=== PATIENT | female | born 1980 | race Caucasian/White ===

== ENCOUNTER 2016-08-16 20:32 | Emergency (ER) | payer BC ==
[2016-08-16 20:51] VITALS: BP 112/78
--- NOTE | 2016-08-16 21:21 | UC ---
Abdominal Pain Female HPI - HPI Summary HPI Summary: The patient comes in today for: 1. Lower abdominal pain: Onset: 2 hours Palliative/provocative: Standing makes it better. Worse with sitting. Quality: Sharp and burning. Region: Suprapubic, "I can't even button my pants.' Severity: 10 Time: Constant. Associated symptoms: Dysparuenia: Noted last night. Fevers: None. Pelvic disease: LEEP procedure 2 years ago. Dysuria: None. Hematuria: None. LMP: Ended 5 days ago. Vaginal discharge: White with streaks of blood. Diarrhea: None. Vomiting: None A0 female. * - History of Current Complaint Chief Complaint: UCAbdominalPain Stated Complaint: ABDOMINAL PAIN Time Seen by Provider: 08/16/16 20:48 Hx Last Menstrual Period: 08/10/16 Allergies/Adverse Reactions: Allergies Allergy/AdvReac Type Severity Reaction Status Date / Time No Known Allergies Allergy Verified 08/16/16 20:50 Home Medications: Home Medications Multiple Vitamins W/ Minerals [Multivitamin Women] 1 tab PO 08/16/16 [History] NK [No Home Medications Reported] 08/16/16 [History Confirmed 08/16/16] PMH/Surg Hx/FS Hx/Imm Hx Previously Healthy: Yes Endocrine History Of: Denies: Diabetes, Thyroid Disease, Hyperthyroidism, Hypothyroidism, Dyslipidemia Cardiovascular History Of: Denies: Cardiac Disorders, Hypertension, Pacemaker/ICD, Myocardial Infarction , Congestive Heart Failure, Atrial Fibrillation, Deep Vein Thrombosis, Bleeding Disorders Respiratory History Of: Denies: COPD, Asthma, Bronchitis, Pneumonia, Pulmonary Embolism GI/ History Of: Denies: Gastroesophageal Reflux, Ulcer, Gastrointestinal Bleed, Gall Bladder Disease, Kidney Stones, Diverticulitis, Renal Disease, Urosepsis Neurological History Of: Denies: TIA, CVA, Dementia, Seizures, Migraine Psychological History Of: Denies: Anxiety, Depression, Bipolar Disorder, Schizophrenia, Post Traumatic Stress Disorder Cancer History Of: Reports: Cervical Cancer - LEEP procedure. Denies: Lung Cancer, Colorectal Cancer, Breast Cancer, Prostate Cancer Other History Of: Negative For: HIV, Hepatitis B, Hepatitis C, Anticoagulant Therapy - Surgical History Surgical History: Yes Surgery Procedure, Year, and Place: leep procedure - Family History Known Family History: Positive: Hypertension Negative: Cardiac Disease - Social History Occupation: Employed Full-time Alcohol Use: Occasionally Substance Use Type: None Smoking Status (MU): Never Smoked Tobacco Review of Systems Constitutional: Negative Skin: Negative Eyes: Negative ENT: Negative Respiratory: Negative Cardiovascular: Negative Gastrointestinal: Abdominal Pain Genitourinary: Negative All Other Systems Reviewed And Are Negative: Yes Physical Exam Triage Information Reviewed: Yes Appearance: Well-Nourished, Ill-Appearing, Pain Distress - She is crying at times, and will only stand due to the pain. Vital Signs: Initial Vital Signs Temp 98.2 F 08/16/16 20:46 Pulse 90 08/16/16 20:46 Resp 18 08/16/16 20:46 BP 112/78 08/16/16 20:46 Pulse Ox 99 08/16/16 20:46 Vital Signs Reviewed: Yes Eyes: Positive: Conjunctiva Clear. Negative: Discharge ENT: Positive: Hearing grossly normal. Negative: Pharyngeal erythema, Nasal congestion, Nasal drainage, TM bulging, TM dull, TM red, Tonsillar swelling, Tonsillar exudate Dental: Negative: Gross Decay/Caries @, Dental Fracture @ Neck: Positive: Supple, Nontender, No Lymphadenopathy. Negative: Nuchal Rigidity Respiratory: Positive: Chest non-tender, Lungs clear, No respiratory distress, No accessory muscle use. Negative: Crackles, Wheezing Cardiovascular: Positive: RRR, No Murmur Abdomen Description: Positive: No Organomegaly, Soft, Peritoneal Signs. Negative: Nontender - She has most tenderness in the suprapubic area. Moderate palpation led to increased pain--no rebound, but there is percussion tenderness. , CVA Tenderness (R), CVA Tenderness (L), Distended, Guarding Bowel Sounds: Positive: Present Musculoskeletal: Positive: Strength Intact, ROM Intact, No Edema Neurological: Positive: Alert, Muscle Tone Normal Psychological: Positive: Age Appropriate Behavior, Consolable Skin: Negative: rashes, breakdown Abd Pain Female Course/Dx - Course Course Of Treatment: Patient was told that we are not able to due any of the blood and imaging such as ultrasound on her here. She agreed to go to the ER by private car. - Differential Dx/Diagnosis Differential Diagnosis: Ovarian Cyst Provider Diagnoses: suprapubic abdominal pain. Discharge - Discharge Plan Condition: Stable Disposition: HOME Forms: *Work Release Referrals: No Primary Care Phys,NOPCP [Primary Care Provider] - [facility] [place] [facility] REFERR[facility] [Outside] Additional Instructions: Please go directly to the [facility], [place] emergency room.
== END 2016-08-16 21:45 | disposition left against medical advice (07) ==
LOC: UCEAST 20:32
DX: R10.30 Lower abdominal pain, unspecified (principal); N89.8 Other specified noninflammatory disorders of vagina
CPT/HCPCS: 99202; G0463

== ENCOUNTER 2016-08-16 22:08 | Emergency (ER) | payer BC ==
[2016-08-16] MEDS ORDERED: NS 0.9% 1000 ML* 1,000 ML IV ONE (22:58)
[2016-08-16] MEDS ORDERED: Morphine INJ* 4 MG/ML 1 ML CARPUJECT IV ONE (23:03)
[2016-08-16] MEDS ORDERED: Ondansetron INJ* 2 MG/ML VIAL IV ONE (23:03)
[2016-08-16] MEDS ORDERED: Ketorolac INJ* 30 MG/ML 1 ML VIAL IV PUSH ONE (23:03)
--- NOTE | 2016-08-16 23:07 | ED ---
Abdominal Pain/Female - HPI Summary HPI Summary: 35F presents with LLQ pain that became suprapubic pain today. She states feels like ruptured ovarian cyst that had in past. LMP was 6 days ago. She said she stood up and felt a pop and then felt fluid pool in her lower abdomen. She states that she is currently nauseous but denies any vomiting, diarrhea, or constipation. She denies any dysuria, frequency, hematuria. She admits to vaginal discharge but denies any history of STDs. She had cervical cancer that was treated with LEEP procedure. Was seen at urgent care and transferred here for further work up. - History of Current Complaint Chief Complaint: EDUrogenitalProblems Stated Complaint: ABD PAIN /CONV CARE Time Seen by Provider: 08/16/16 22:57 Hx Last Menstrual Period: 08/10/16 Pain Intensity: 9 Allergies/Adverse Reactions: Allergies Allergy/AdvReac Type Severity Reaction Status Date / Time No Known Allergies Allergy Verified 08/16/16 20:50 PMH/Surg Hx/FS Hx/Imm Hx Endocrine/Hematology History: Denies: Hx Anticoagulant Therapy, Hx Diabetes, Hx Thyroid Disease Cardiovascular History: Denies: Hx Congestive Heart Failure, Hx Deep Vein Thrombosis, Hx Hypertension , Hx Myocardial Infarction, Hx Pacemaker/ICD Respiratory History: Denies: Hx Asthma, Hx Chronic Obstructive Pulmonary Disease (COPD), Hx Lung Cancer, Hx Pneumonia, Hx Pulmonary Embolism GI History: Denies: Hx Gall Bladder Disease, Hx Gastrointestinal Bleed, Hx Ulcer, Hx Urosepsis History: Denies: Hx Kidney Stones, Hx Renal Disease Neurological History: Denies: Hx Dementia, Hx Migraine, Hx Seizures, Hx Transient Ischemic Attacks (TIA) Psychiatric History: Denies: Hx Anxiety, Hx Depression, Hx Schizophrenia, Hx Bipolar Disorder - Surgical History Surgery Procedure, Year, and Place: leep procedure Infectious Disease History: No Infectious Disease History: Denies: Hx Hepatitis, Hx Human Immunodeficiency Virus (HIV), Traveled Outside the US in Last 30 Days - Family History Known Family History: Positive: Hypertension Negative: Cardiac Disease - Social History Alcohol Use: Occasionally Substance Use Type: Reports: None Smoking Status (MU): Never Smoked Tobacco Review of Systems Negative: Fever Negative: Chest Pain Negative: Shortness Of Breath Positive: Abdominal Pain - LLQ and suprapubic, Nausea. Negative: Vomiting, Diarrhea Negative: dysuria All Other Systems Reviewed And Are Negative: Yes Physical Exam Triage Information Reviewed: Yes Vital Signs On Initial Exam: Initial Vitals Temp Pulse Resp BP Pulse Ox 98.1 F 106 18 115/70 99 08/16/16 22:12 08/16/16 22:12 08/16/16 22:12 08/16/16 22:12 08/16/16 22:12 Vital Signs Reviewed: Yes Appearance: Positive: Pain Distress Skin: Positive: Warm, Dry Head/Face: Positive: Normal Head/Face Inspection Eyes: Positive: Normal, Conjunctiva Clear ENT: Positive: Normal ENT inspection, Pharynx normal, TMs normal Respiratory/Lung Sounds: Positive: Clear to Auscultation, Breath Sounds Present Cardiovascular: Positive: Normal, RRR Abdomen Description: Positive: Soft, Other: - moderate tenderness of suprapubic region, neg rovsing, obturator. Negative: Distended, Guarding Bowel Sounds: Positive: Present Pelvic Exam: Positive: external exam normal, speculum exam normal, discharge - white discharge, other - neg chandelier sign, mild tenderness on exam. Negative : blood Diagnostics - Vital Signs Vital Signs Temp Pulse Resp BP Pulse Ox 08/16/16 22:12 98.1 F 106 18 115/70 99 - Laboratory Result Diagrams: 08/16/16 23:20 08/16/16 23:20 Lab Statement: Any lab studies that have been ordered have been reviewed, and results considered in the medical decision making process. - Ultrasound No standard instances Ultrasound Interpretation: Positive (See Comments) - left sided fibroid, normal ovaries, no ovarian torison, no free fluid Ultrasound Interpretation Completed By: Radiologist Abdominal Pain Fem Course/Dx - Course Course Of Treatment: 35F presents with LLQ that became suprapubic pain today. states that pain is worst every had. states feels similiar to when had ruptured ovarian cyst. on exam tender to suprapubic pain. labs: normal. u/a shows fibroid and no free fluid or cyst. pelvic exam showed white vaginal discharge was mild tenderness but no chandelier sign. patient is more tender when pushing on abdomen than when do internal exam so do not suspect PID. do not suspect appendicits due to no RLQ and normal labs. discussed results with patient that do not see cause for pain. will give pain medication and have follow up with primary. patient understands and agrees with plan - Diagnoses Differential Diagnosis: Positive: Appendicitis, Ovarian Cyst, Pelvic Inflammatory Disease, Urinary Tract Infection Provider Diagnoses: Abdominal pain Discharge - Discharge Plan Condition: Good Disposition: HOME Prescriptions: Ondansetron ODT TAB* [Zofran 4 MG Odt TAB*] 4 mg PO Q6H PRN #10 tab.odt PRN Reason: Nausea oxyCODONE/Acetamin 5/325 MG* [Percocet 5/325 TAB*] 1 tab PO Q6H PRN #6 tab MDD 4 PRN Reason: Pain Patient Education Materials: Abdominal Pain (ED) Referrals: No Primary Care Phys,NOPCP [Primary Care Provider] - Additional Instructions: Drink small amounts of fluid and eat as tolerated Take ibuprofen or Tylenol for pain as needed every 6 hours, use narcotic for break through pain every 6 hours Take zofran every 6 hours as needed for nausea Follow up with primary within 5 days Return to ED if develop any new or worsening symptoms
[2016-08-16 23:40] LABS: Hematocrit 43 % (35-47); Hemoglobin 14.2 g/dl (12.0-16.0); Mean Corpuscular HGB Conc 33 g/dl (31-36); Mean Corpuscular Hemoglobin 30 pg (27-31); Mean Corpuscular Volume 90 fL (80-97); Mean Platelet Volume 9 um3 (7.4-10.4); Red Blood Count 4.71 10^6/ul (4.0-5.4); Red Cell Distribution Width 13 % (10.5-15); White Blood Count 9.4 10^3/ul (3.5-10.8)
[2016-08-17 00:04] LABS: Albumin 4.5 g/dL (3.2-5.2); BUN/Creatinine Ratio 17.6 (8-20); Calcium 9.6 mg/dL (8.6-10.3); EGFR African American 127.4 (>60); Globulin 2.8 g/dL (2-4); Potassium 3.7 mmol/L (3.5-5.0); Total Bilirubin 0.3 mg/dL (0.2-1.0); Total Protein 7.3 g/dL (6.4-8.9)
[2016-08-17] MEDS ORDERED: Morphine INJ* 4 MG/ML 1 ML CARPUJECT IV ONE (00:16)
[2016-08-17 00:40] LABS: Urine Bilirubin Negative (Negative); Urine Glucose Negative (Negative); Urine Nitrite Negative (Negative)
[2016-08-17] MEDS ORDERED: oxyCODONE/Acetamin 5/325 MG* TAB PO ONE (01:00)
[2016-08-17 01:30] VITALS: BP 114/70
--- NOTE | 2016-08-17 08:00 | RAD ---
Indication: Pelvic pain. Left lower quadrant pain. Real-time sonography of the pelvis was performed. The study was performed with endovaginal technique. The uterus measures 6.9 x 3.0 x 4.5 cm. Uterine body fibroid to the left measures 15 x 12 x 15 mm. Endometrial echo measures 12 mm. Right ovary measures 26 x 16 x 24 mm. Left ovary measures 36 x 22 x 26 mm. No adnexal masses are noted. Doppler interrogation demonstrates flow in both ovaries. IMPRESSION: Left-sided uterine body fibroid. Normal size and appearance of ovaries.
== END 2016-08-17 01:28 | disposition home or self-care (01) ==
LOC: ED 22:08
DX: R10.32 Left lower quadrant pain (principal); R11.0 Nausea
CPT/HCPCS: 36415; 76830; 80053; 81003; 83690; 85025; 86141; 87480; 87491; 87510; 87591; 87661; 96374; 96375; 99283; A9270-GY; J1885; J2270; J2405

== ENCOUNTER 2017-02-04 12:04 | Emergency (ER) | payer BC, OTHER ==
--- NOTE | 2017-02-04 13:16 | RAD ---
HISTORY: Right ankle and foot pain injury, COMPARISONS: None VIEWS: 6, Frontal, lateral, and oblique views of the right ankle and of the right foot FINDINGS: BONE DENSITY: Normal. BONES: There is no displaced fracture. JOINTS: There is no arthropathy. ALIGNMENT: There is no dislocation. SOFT TISSUES: Unremarkable. OTHER FINDINGS: None. IMPRESSION: NO ACUTE OSSEOUS INJURY TO THE RIGHT ANKLE OR TO THE RIGHT FOOT. IF SYMPTOMS PERSIST, RECOMMEND REPEAT IMAGING.
[2017-02-04] MEDS ORDERED: Ketorolac INJ* 60 MG/2 ML VIAL IM ONE (14:42)
--- NOTE | 2017-02-04 14:55 | ED ---
Lower Extremity - HPI Summary HPI Summary: 36 female presents with complaints of lower right ankle/foot pain that has been ongoing for the past week. Patient states ~ 2 weeks ago she injured and twisted it, swelling, bruising and pain improved however on Monday/ days ago, patient had a keg fall onto her ankle/foot while at work and the pain has not gone away since. It has been worsening.States she has been icing, elevating and taking ibuprofen without relief. She states she was up last night from the throbbing pain. She does not know what she did with it. [facility] who gave her a foot brace and sent her home. Negative x-rays at that time as well. States pain is in back of heel and both medial/lateral ankle/ foot. Admits to some bruising. Denies PMHx. Admits to some pins needles when elevating in her toes. Denies any other injuries, calf pain, knee pain, etc. Last dose ibuprofen was this am around 9:30. No erythema, fever/chills. no tobacco use. no prolonged bed rest, no OCP. - History of Current Complaint Chief Complaint: EDExtremityLower Stated Complaint: RT ANKLE/FOOT INJURY Time Seen by Provider: 02/04/17 12:30 Hx Obtained From: Patient Hx Last Menstrual Period: 08/10/16 Mechanism Of Injury: Direct Blow - keg fell on, Twisted Onset of Pain: Immediate, Post Accident Onset/Duration: Worse Since Severity Initially: Mild Severity Currently: Moderate Pain Intensity: 6 Pain Scale Used: 0-10 Numeric Timing: Constant Location: Is Discrete @ - right ankle/foot Character Of Pain: Sharp, Aching Associated Signs And Symptoms: Positive: Swelling, Bruising Aggravating Factor(s): Standing, Ambulation, Weight Bearing Alleviating Factor(s): Rest, Elevation, Ice, OTC Meds Able to Bear Weight: No - due to pain - Allergies/Home Medications Allergies/Adverse Reactions: Allergies Allergy/AdvReac Type Severity Reaction Status Date / Time No Known Allergies Allergy Verified 02/04/17 12:20 PMH/Surg Hx/FS Hx/Imm Hx Endocrine/Hematology History: Denies: Hx Anticoagulant Therapy, Hx Diabetes, Hx Thyroid Disease Cardiovascular History: Denies: Hx Congestive Heart Failure, Hx Deep Vein Thrombosis, Hx Hypertension , Hx Myocardial Infarction, Hx Pacemaker/ICD Respiratory History: Denies: Hx Asthma, Hx Chronic Obstructive Pulmonary Disease (COPD), Hx Lung Cancer, Hx Pneumonia, Hx Pulmonary Embolism GI History: Denies: Hx Gall Bladder Disease, Hx Gastrointestinal Bleed, Hx Ulcer, Hx Urosepsis History: Denies: Hx Kidney Stones, Hx Renal Disease Neurological History: Denies: Hx Dementia, Hx Migraine, Hx Seizures, Hx Transient Ischemic Attacks (TIA) Psychiatric History: Denies: Hx Anxiety, Hx Depression, Hx Schizophrenia, Hx Bipolar Disorder - Surgical History Surgery Procedure, Year, and Place: leep procedure - Immunization History Immunizations Up to Date: Yes Infectious Disease History: No Infectious Disease History: Denies: Hx Hepatitis, Hx Human Immunodeficiency Virus (HIV), Traveled Outside the US in Last 30 Days - Family History Known Family History: Positive: Hypertension Negative: Cardiac Disease - Social History Alcohol Use: Occasionally Substance Use Type: Reports: None Smoking Status (MU): Never Smoked Tobacco Review of Systems Constitutional: Negative Cardiovascular: Negative Respiratory: Negative Positive: Arthralgia, Myalgia, Decreased ROM, Edema - right ankle/foot Positive: Bruising Positive: Paresthesia All Other Systems Reviewed And Are Negative: Yes Physical Exam Triage Information Reviewed: Yes Vital Signs On Initial Exam: Initial Vitals Temp Pulse Resp BP Pulse Ox 97.3 F 59 16 152/72 97 02/04/17 12:10 02/04/17 12:10 02/04/17 12:10 02/04/17 12:10 02/04/17 12:10 Bp improved 116/73 Vital Signs Reviewed: Yes Appearance: Positive: Well-Appearing, Well-Nourished, Pain Distress - moderate when palpating or moving Skin: Positive: Warm, Skin Color Reflects Adequate Perfusion, Dry, Other - some ecchymosis and edema noted at left medial ankle/foot. Negative: Cold, Numb, Cyanosis @, Pale Head/Face: Positive: Normal Head/Face Inspection Eyes: Positive: Conjunctiva Clear ENT: Positive: Hearing grossly normal Neck: Positive: Supple, Nontender Respiratory/Lung Sounds: Positive: Clear to Auscultation, Breath Sounds Present. Negative: Rales, Rhonchi, Wheezes Cardiovascular: Positive: Normal, RRR, Pulses are Symmetrical in both Upper and Lower Extremities - 2+ pedal b/l good cap refill. Negative: Murmur, Rub Abdomen Description: Positive: Nontender Bowel Sounds: Positive: Present Musculoskeletal: Positive: Limited @ - right ankle due to pain, has some ROM, Pain @ - medial malleolous, foot, lateral and heel on palpation. some ecchymosis and edema noted, Edema Right - mild on right, Other - no crepitus, step off or obvious deformity. negative resendiz test. recommend MRI imaging to rule out achilles indefinetly. Negative: Interruption @, Abnormal @, Adina Sign Left, Adina Sign Right Neurological: Positive: Normal, Sensory/Motor Intact - sensation intact, Alert, Oriented to Person Place, Time, Reflexes Intact, NV Bundle Intact Distally, Unable to Assess Gait - on crutches Psychiatric: Positive: Affect/Mood Appropriate - [place] Coma Scale Coma Scale Total: 15 Diagnostics - Vital Signs Vital Signs Temp Pulse Resp BP Pulse Ox 02/04/17 12:24 98.3 F 69 16 116/73 100 02/04/17 12:10 97.3 F 59 16 152/72 97 - Laboratory Lab Statement: Any lab studies that have been ordered have been reviewed, and results considered in the medical decision making process. - Radiology right ankle/foot Xray Interpretation: No Acute Changes - NO ACUTE OSSEOUS INJURY TO THE RIGHT ANKLE OR TO THE RIGHT FOOT. IF SYMPTOMS PERSIST, RECOMMEND REPEAT IMAGING. Radiology Interpretation Completed By: Radiologist Re-Evaluation - Re-Evaluation First Eval Re-Evaluation Time: 15:30 Change: Improved - had relief after toradol Lower Extremity Course/Dx - Course Course Of Treatment: given toradol and ice while in ED. had some relief. x-rays obtained and negative. appears to be suffering from a sprain or possible tear in ligament along with contusion. follow up with ortho for further evaulation and imaging since pain has worsened and is not getting better. no concern for DVT at this time. no emergent etiology. aware of worsening signs and symptoms. continue NSAID, RICE and pain managment. Encouraged to stay off of foot due to pain not getting better however still walking on ankle/foot. Given CAM boot, crutches. Follow up PCP. - Diagnoses Differential Diagnosis/HQI/PQRI: Positive: Arthritis, Contusion, Fracture ( Closed), Sprain, Strain Provider Diagnoses: Sprain of ankle, right, Right foot sprain, Contusion Discharge - Discharge Plan Condition: Stable Disposition: HOME Patient Education Materials: Ankle Sprain (ED), Contusion in Adults (ED) Referrals: Aparna Yates MD [Medical Doctor] - [facility] [place] [facility]ERR[facility] [Outside] Additional Instructions: Continue icing, resting and elevating. Take ibuprofen and pain medication to help with pain and inflammation as directed. take with food. do not drive while taking narcotics. make an appointment with ortho. call number to try and find PCP. use boot and crutches and try to refrain from walking on it and using it.
[2017-02-04 16:15] VITALS: BP 112/70
== END 2017-02-04 16:14 | disposition home or self-care (01) ==
LOC: ED 12:04
DX: S93.401A Sprain of unspecified ligament of right ankle, initial encounter (principal); M25.571 Pain in right ankle and joints of right foot; S90.31XA Contusion of right foot, initial encounter; X50.9XXA Other and unspecified overexertion or strenuous movements or postures, initial encounter; Y93.89 Activity, other specified; Y92.89 Other specified places as the place of occurrence of the external cause
CPT/HCPCS: 96372; 99282; J1885

== ENCOUNTER → 2017-04-29 05:19 | Emergency (ER) | payer OTHER ==
[~2017-04-29 05:19] MED LIST: Acetaminophen TAB* 325 MG ONE; Acetaminophen TAB* 325 MG PO ONE
[2017-04-29 06:47] LABS: Hematocrit 36 % (35-47); Hemoglobin 12.7 g/dl (12.0-16.0); Mean Corpuscular HGB Conc 35 g/dl (31-36); Mean Corpuscular Hemoglobin 31 pg (27-31); Mean Corpuscular Volume 88 fL (80-97); Mean Platelet Volume 9 um3 (7.4-10.4); Red Blood Count 4.11 10^6/ul (4.0-5.4); Red Cell Distribution Width 13 % (10.5-15); White Blood Count 11.3 10^3/ul (3.5-10.8)
[2017-04-29 07:04] LABS: Albumin 3.5 g/dL (3.2-5.2); BUN/Creatinine Ratio 14.5 (8-20); Calcium 8.8 mg/dL (8.6-10.3); EGFR African American 161.8 (>60); EGFR Non-African American 125.8 (>60); Globulin 2.6 g/dL (2-4); Potassium 3.3 mmol/L (3.5-5.0); Total Bilirubin 0.2 mg/dL (0.2-1.0); Total Protein 6.1 g/dL (6.4-8.9)
--- NOTE | 2017-04-29 08:23 | ED ---
Don Delatorre Alfonso, scribed for Romaine Rosales MD on 04/29/17 at 0658 . Abdominal Pain/Female - HPI Summary HPI Summary: This patient is a 36 year old F presenting to [facility] accompanied by male with a chief complaint of lower abdominal pain gradually worsening since 1999 yesterday. She reports it feels like I am having contractions in my uterus every 5 minutes lasting a few minutes during 15 weeks of . The patient rates the sharp and throbbing pain 8/10 in severity. Symptoms aggravated by lifting chairs. Symptoms alleviated by nothing. Patient denies vaginal discharge and vaginal bleeding. A1. - History of Current Complaint Chief Complaint: EDAbdPain Stated Complaint: 15 WEEKS /POSS CONTRACTIONS Time Seen by Provider: 04/29/17 06:09 Hx Obtained From: Patient ?: Yes Onset/Duration: Gradual Onset, Lasting Hours, Still Present, Worse Since Timing: Constant Severity Currently: Severe Pain Intensity: 8 Pain Scale Used: 0-10 Numeric Location: Other - Lower Character: Other: - Sharp and throbbing Aggravating Factor(s): Other: - lifting chairs Alleviating Factor(s): Nothing Associated Signs and Symptoms: Positive: Other: - Patient denies vaginal discharge and vaginal bleeding Allergies/Adverse Reactions: Allergies Allergy/AdvReac Type Severity Reaction Status Date / Time No Known Allergies Allergy Verified 04/29/17 05:26 PMH/Surg Hx/FS Hx/Imm Hx Endocrine/Hematology History: Denies: Hx Anticoagulant Therapy, Hx Diabetes, Hx Thyroid Disease Cardiovascular History: Denies: Hx Congestive Heart Failure, Hx Deep Vein Thrombosis, Hx Hypertension , Hx Myocardial Infarction, Hx Pacemaker/ICD Respiratory History: Denies: Hx Asthma, Hx Chronic Obstructive Pulmonary Disease (COPD), Hx Lung Cancer, Hx Pneumonia, Hx Pulmonary Embolism GI History: Denies: Hx Gall Bladder Disease, Hx Gastrointestinal Bleed, Hx Ulcer, Hx Urosepsis History: Denies: Hx Kidney Stones, Hx Renal Disease Opthamlomology History: Denies: Hx Legally Blind EENT History: Denies: Hx Deafness Neurological History: Denies: Hx Dementia, Hx Migraine, Hx Seizures, Hx Transient Ischemic Attacks (TIA) Psychiatric History: Denies: Hx Anxiety, Hx Depression, Hx Schizophrenia, Hx Bipolar Disorder - Surgical History Surgery Procedure, Year, and Place: leep procedure - Immunization History Immunizations Up to Date: Yes Infectious Disease History: No Infectious Disease History: Denies: Hx Hepatitis, Hx Human Immunodeficiency Virus (HIV), Traveled Outside the US in Last 30 Days - Family History Known Family History: Positive: Hypertension Negative: Cardiac Disease - Social History Alcohol Use: None Hx Substance Use: No Substance Use Type: Reports: None Hx Tobacco Use: Yes Smoking Status (MU): Former Smoker Review of Systems Positive: Abdominal Pain Positive: other - Negative vaginal bleeding and discharge All Other Systems Reviewed And Are Negative: Yes Physical Exam - Summary Physical Exam Summary: Appearance: Anxious appearing Sin: Warm Eyes: Normal ENT: Normal Neck: Supple, nontender Respiratory: Clear to auscultation Cardiovascular: Normal Abdomen: Soft, nontender, no armen or guarding Bowel: Present Musculoskeletal: Normal, Strength/ROM Intact Neurological: Normal, A&Ox3 Psychiatric: Normal Triage Information Reviewed: Yes Vital Signs On Initial Exam: Initial Vitals Temp Pulse Resp BP Pulse Ox 98.2 F 84 16 103/67 97 04/29/17 05:21 04/29/17 05:21 04/29/17 05:21 04/29/17 05:21 04/29/17 05:21 Vital Signs Reviewed: Yes - [place] Coma Scale Coma Scale Total: 15 Diagnostics - Vital Signs Vital Signs Temp Pulse Resp BP Pulse Ox 04/29/17 06:30 71 93/59 98 04/29/17 06:00 99/62 04/29/17 05:59 66 97 04/29/17 05:54 80 98 04/29/17 05:52 95/65 04/29/17 05:21 98.2 F 84 16 103/67 97 - Laboratory Lab Results: Lab Results 04/29/17 04/29/17 Range/Units 06:25 06:25 WBC 11.3 H (3.5-10.8) 10^3/ul RBC 4.11 (4.0-5.4) 10^6/ul Hgb 12.7 (12.0-16.0) g/dl Hct 36 (35-47) % MCV 88 (80-97) fL MCH 31 (27-31) pg MCHC 35 (31-36) g/dl RDW 13 (10.5-15) % Plt Count 268 (150-450) 10^3/ul MPV 9 (7.4-10.4) um3 Neut % (Auto) 68.1 (38-83) % Lymph % (Auto) 20.9 L (25-47) % White % (Auto) 7.9 (1-9) % Eos % (Auto) 2.7 (0-6) % Baso % (Auto) 0.4 (0-2) % Absolute Neuts (auto) 7.7 (1.5-7.7) 10^3/ul Absolute Lymphs (auto) 2.4 (1.0-4.8) 10^3/ul Absolute Monos (auto) 0.9 H (0-0.8) 10^3/ul Absolute Eos (auto) 0.3 (0-0.6) 10^3/ul Absolute Basos (auto) 0 (0-0.2) 10^3/ul Absolute Nucleated RBC 0.01 10^3/ul Nucleated RBC % 0.1 Blood Type O Positive Antibody Screen Pending Result Diagrams: 04/29/17 06:25 04/29/17 06:25 Lab Statement: Any lab studies that have been ordered have been reviewed, and results considered in the medical decision making process. - Additional Comments Diagnostic Additional Comments: US Pending official interpretation from radiologist. See [employer]. Abdominal Pain Fem Course/Dx - Course Course Of Treatment: labs drawn, pendig ultrasound, pt care signed out ot Dr. Castanon - Diagnoses Provider Diagnoses: Abdominal pain during Discharge - Discharge Plan Condition: Stable Disposition: OTHER Discharge Disposition Comment: signed out to AM attending Dr. Castanon Referrals: No Primary Care Phys,NOPCP [Primary Care Provider] - The documentation as recorded by the Don stephens Alfonso accurately reflects the service I personally performed and the decisions made by me, Romaine Rosales MD.
[2017-04-29 08:54] LABS: Urine Bacteria Absent (Absent); Urine Bilirubin Negative (Negative); Urine Glucose Negative (Negative); Urine Nitrite Negative (Negative)
--- NOTE | 2017-04-29 09:01 | RAD ---
INDICATION: Abdominal pain in a female. Comparison: None Multiple transabdominal real time images of the gravid uterus were obtained. There is a fundal height uterine fibroid measuring 5.6 x 4.0 x 3.9 cm. This exam demonstrates a single intrauterine in the breech presentation. heart and limb motion were noted. The heart rate was 160 beats per minute. The placenta was located anterior. The amniotic fluid volume appeared to be within normal limits with an amniotic fluid index 11.9 cm. Biparietal diameter (cm) 3.26 which corresponds to a gestational age of 16 weeks and 2 days. Head circumference (cm) 12.01 which corresponds to a gestational age of 16 week. abdominal circumference(cm) 9.83 which corresponds to a gestational age of 16 weeks. femur length (cm) 1.74 which corresponds to a gestational age of 15 weeks and 2 days. The composite estimated gestational age was 16 weeks and 0 days. The estimated weight at this time is 129 grams +/- 19 grams. IMPRESSION: 1. There is a fundal height uterine fibroid measuring 5.6 cm in greatest dimension. 2. Otherwise sonographic findings of the gravid uterus are consistent with a gestational age of 16 weeks and 0 days.
--- NOTE | 2017-04-29 11:21 | RAD ---
INDICATION: Left flank pain and hematuria COMPARISON: None TECHNIQUE: Real-time ultrasound examination of the left kidney including grayscale and Doppler color flow analysis. FINDINGS: The left kidney is normal in size and echogenicity measuring 13.2 x 4.6 x 5.3 cm. There are no hypervascular renal masses. There are no renal calculi or hydronephrosis identified. IMPRESSION: Normal ultrasound of the left kidney.
[2017-04-29 11:52] VITALS: BP 89/59
--- NOTE | 2017-04-29 18:00 | ED ---
Angely Delatorre Edward, scribed for Kalyan Castanon MD on 04/29/17 at 0908 . Progress - Progress Note Progress Note: Pt signed out by Dr. Rosales at shift change. - Results/Orders Results/Orders: US - 1. There is a fundal height uterine fibroid measuring 5.6 cm in greatest dimension. 2. Otherwise sonographic findings of the gravid uterus are consistent with a gestational age of 16 weeks and 0 days. RENAL US - NORMAL US OF L KIDNEY Re-Evaluation - Re-Evaluation 1 Re-Evaluation Time: 10:48 Change: Unchanged - Pain at 4/10 Course/Dx - Course Course Of Treatment: Discussed the case with Dr. Stewart, who indicates the fibroid should not affect . He recommends the pt f/u with mid-wives. Speculum exam not indicated. No signs of UTI or dehydration. On re-eval and my first exam, the pt reports pain in the lower abd radiating to the l flank and back. Pt states no history of hematuria previously. Therefore, we will take a Renal US. There was no tenderness on exam, the pain is 4/10. There was no RLQ tenderness and I have no suspicion of appendicitis. LEFT RENAL US NORMAL. Pt will be d/c home. Urine culture pending. Will call pt if there is any evidence of a UTI. - Diagnoses Provider Diagnoses: Abdominal pain, , Uterine fibroid, Hematuria - Provider Notifications Discussed Care Of Patient With: Cachorro Stewart Time Discussed With Above Provider: 09:10 Instructed by Provider To: Other - fibroid should not affect . F/u with mid-wives. Speculum exam not indicated The documentation as recorded by the jaclynibAngely knox Edward accurately reflects the service I personally performed and the decisions made by , Kalyan Castanon MD.
== END ==
LOC: ED 05:19
DX: O26.892 Other specified pregnancy related conditions, second trimester (principal); D25.9 Leiomyoma of uterus, unspecified; R31.9 Hematuria, unspecified; Z3A.15 15 weeks gestation of pregnancy; Z87.891 Personal history of nicotine dependence
CPT/HCPCS: 36415; 76775; 76815; 80053; 81003; 81015; 84702; 85025; 85610; 85730; 86850; 86900; 86901; 99283; A9270-GY

== ENCOUNTER 2017-10-22 21:43 | Inpatient (IN) | payer OTHER ==
[2017-10-22] MEDS ORDERED: Nalbuphine* 20 MG/ML 1 ML VIAL IV ONE (22:20)
[2017-10-22] MEDS ORDERED: Promethazine INJ(RESTRICTED)* 25 MG/ML 1 ML VIAL IV ONE (22:20)
[2017-10-22 23:32] LABS: Hematocrit 34 % (35-47); Hemoglobin 10.4 g/dl (12.0-16.0); Mean Corpuscular HGB Conc 31 g/dl (31-36); Mean Corpuscular Hemoglobin 23 pg (27-31); Mean Corpuscular Volume 74 fL (80-97); Mean Platelet Volume 9.5 um3 (7.4-10.4); Platelet Count 206 10^3/ul (150-450); Red Blood Count 4.53 10^6/ul (4.0-5.4); Red Cell Distribution Width 17 % (10.5-15); White Blood Count 13.9 10^3/ul (3.5-10.8)
[2017-10-23 00:11] LABS: ABS Basophils 0.1 10^3/ul (0-0.2); ABS Eosinophils 0.1 10^3/ul (0-0.6); ABS Lymphocytes 1.7 10^3/ul (1.0-4.8); ABS Monocytes 0.9 10^3/ul (0-0.8); ABS Neutrophils 11.2 10^3/ul (1.5-7.7); ABS Nucleated RBC 0 10^3/ul; Eosinophil % 0.5 % (0-6); Lymphocyte % 12.4 % (25-47); Nucleated Red Blood Cells % 0.3
[2017-10-23] MEDS ORDERED: OBEPIDURAL* 250 ML EPIDURAL ONE (00:21)
[2017-10-23] MEDS ORDERED: Sodium Citrate/Citric Acid* 15 ML UDC PO PRN (01:37)
[2017-10-23] MEDS ORDERED: EPHEDrine (Pressors)* 50 MG/ML VIAL IV PUSH PRN ×2 (01:37)
[2017-10-23] MEDS ORDERED: Famotidine TAB* 20 MG PO PRN (01:37)
[2017-10-23] MEDS ORDERED: Phenylephrine IV* 40 MCG/ML 10 ML SYRINGE IV PUSH PRN ×2 (01:37)
--- NOTE | 2017-10-23 01:58 | HP ---
General Information - General Information Maternal Age: 37 Grav: 2 Para: 0 SAB: 0 IEA: 1 Estimated Due Date: 10/20/17 Determined By: Early Ultrasound Gestational Age in Weeks and Days: 40 Weeks and 2 Days Maternal Blood Type and Rh: O Positive - Results this Serology/RPR Result: Non-Reactive Rubella Result: Immune HBsAg Result: Negative HIV Result: Negative GBS Culture Result: Negative Past Medical History Delivery History: See Records Pertinent Past Surgical History: See Records - anxiety, herniated T6 disk Pertinent Family History: Non-Contributory - Antepartal Records Antepartal Records: Reviewed, Complicated by: - left lateral myoma, age 37, 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 Review of Systems Constitutional: Comfortable CV Complaint: No Respiratory: Shortness of Breath: No Gastrointestinal: No Nausea/Vomiting Genitourinary: No Dysuria, No Bleeding, No Leaking Fluid Musculoskeletal: No Complaint Neurological: No Headache, No Visual Changes Movement: Normal Exam Allergies/Adverse Reactions: Allergies No Known Allergies Allergy (Verified 10/14/17 23:35) T-98.8, P-73, R-20, BP-99/60 Lab Values - Entire Visit: Laboratory Tests 10/22/17 10/22/17 22:35 22:35 WBC 13.9 H RBC 4.53 Hgb 10.4 L Hct 34 L MCV 74 L MCH 23 L MCHC 31 RDW 17 H Plt Count 206 MPV 9.5 Neut % (Auto) 80.5 Lymph % (Auto) 12.4 L Kings % (Auto) 6.1 Eos % (Auto) 0.5 Baso % (Auto) 0.5 Absolute Neuts (auto) 11.2 H Absolute Lymphs (auto) 1.7 Absolute Monos (auto) 0.9 H Absolute Eos (auto) 0.1 Absolute Basos (auto) 0.1 Absolute Nucleated RBC 0 Nucleated RBC % 0.3 Microcytosis 1+ Blood Type O Positive Antibody Screen Negative - Measurements Height: 5 ft 3 in Weight: 86.183 kg Weight in lbs: 190 Body Mass Index (BMI): 33.6 Pre- Weight: 65.771 kg Weight Gained This : 45 lbs and 0 ozs - Exam Abdomen: No Upper Quadrant Pain Breast: Breast Exam Deferred CVA: No CVA Tenderness Extremities: No Edema Heart: Normal Rhythm/Heart Sounds HEENT: No Significant Findings Lungs: Clear Bilaterally Rectal: Rectal Exam Deferred Reflexes: DTR 2+ Thyroid: No Thyromegaly - Abdominal Exam Abdomen Exam: Non-Tender, Fundal Height Consistent with Dates - Ultrasound/Biophysical Profile Ultrasound Status: Not Done Targeted Exam Findings See L&D Outpatient Visit Provider Note for Findings: N/A Estimated Weight: 8# Cervical Exam: 4cm Effacement: 90% Station: -3 Presenting Part: Vertex Membrane Status: Bulging Bleeding/Discharge: None EFM Findings - External Monitor Findings Baseline Heart Rate: 130 External Monitor Findings: Accelerations Present, No Pattern of Variable or Late Decelerations, Variability Moderate, Baseline Stable Contractions: Regular, Moderate, 45-90 Seconds Contraction Frequency: 2-4 Assessment/Plan - Reason for Visit Reason for Visit: Pt reports ctx now 2-3 minutes apart. - Obstetrical Risk Factors Obstetrical Risk Factors: Post-Dates - Plan Plan: Active Labor - Date/Time of Admission Date of Admission: 10/23/17 Time of Admission: 00:15
[2017-10-23] MEDS ORDERED: OBEPIDURAL* 250 ML EPIDURAL SCH (02:00)
[2017-10-23] MEDS ORDERED: Oxytocin in LR* 20 UNITS/1,000 ML BAG IVPB ONE (05:48)
[2017-10-23] MEDS ORDERED: Oxytocin in LR* 20 UNITS/1,000 ML BAG IVPB SCH ×2 (06:00→12:00)
[2017-10-23] MEDS ORDERED: ceFOXitin 2 GM IVPREMIX* 50 ML IVPB ONE (11:15)
[2017-10-23] MEDS: NS 0.9% 50 ML* 50 ML with ceFOXitin(*) 2 GM IVPB SCH ×4 (11:24→19:38)
[2017-10-23] MEDS ORDERED: Glycerin ADULT SUPP PR PRN (11:32)
[2017-10-23] MEDS ORDERED: Simethicone TAB* 80 MG TAB.CHEW PO SCH (12:30)
[2017-10-23] MEDS: Docusate CAP* 100 MG PO SCH ×2 (13:13→21:45)
[2017-10-23] MEDS: Ibuprofen TAB* 600 MG PO PRN ×2 (13:15→19:38)
[2017-10-23] MEDS: Dibucaine 1% 28.35 GM TUBE PR PRN (13:15)
[2017-10-23] MEDS: Witch Hazel PAD* JAR TOPICAL PRN (13:15)
[2017-10-23] MEDS: Acetaminophen TAB* 325 MG PO PRN ×2 (19:38→23:38)
[2017-10-24 06:17] LABS: ABS Basophils 0.1 10^3/ul (0-0.2); ABS Eosinophils 0.2 10^3/ul (0-0.6); ABS Lymphocytes 2.4 10^3/ul (1.0-4.8); ABS Neutrophils 13.6 10^3/ul (1.5-7.7); ABS Nucleated RBC 0 10^3/ul; Eosinophil % 1.1 % (0-6); Hematocrit 30 % (35-47); Hemoglobin 9.6 g/dl (12.0-16.0); Lymphocyte % 13.7 % (25-47); Mean Corpuscular HGB Conc 32 g/dl (31-36); Mean Corpuscular Hemoglobin 23 pg (27-31); Mean Corpuscular Volume 74 fL (80-97); Mean Platelet Volume 8.9 um3 (7.4-10.4); Nucleated Red Blood Cells % 0; Platelet Count 224 10^3/ul (150-450); Red Blood Count 4.11 10^6/ul (4.0-5.4); Red Cell Distribution Width 18 % (10.5-15); White Blood Count 17.3 10^3/ul (3.5-10.8)
--- NOTE | 2017-10-24 08:38 | OP ---
DATE OF PROCEDURE: 10/23/17 - ROOM #102 DATE OF : 82 SURGEON: Camille Correia MD. PRE-OP DIAGNOSIS: POST-OP DIAGNOSES: OPERATIVE PROCEDURE: INDICATION: I was called to see the patient by uniformer for retained placenta with cord avulsion. I explained to the patient the urgency and need for manual extraction and removal of placenta. The patient agrees to bedside manual extraction of placenta. DESCRIPTION OF PROCEDURE: The patient with good epidural onboard, with adequate pain control. After the patient agreed to manual extraction of placenta, MD placed hand within the uterine cavity and found the plane between the uterus and the plane was created and the placenta was delivered intact. A second pass to the uterine cavity with the hand confirmed complete extraction of placenta and membranes. Minimal bleeding occurred during the actual placental extraction. Total blood loss for the delivery was less than 500 cc. Pitocin was applied intravenously after extraction of placenta, with good tone of the uterus. Placenta will go to Pathology. All of this was reviewed with the patient and her , why the placenta was to go to the Pathology, given its adherent nature to the uterine. There was no evidence of accreta or retained placental piece or membranes after complete removal of placenta. Placenta appeared intact upon removal. The patient tolerated the procedure at bedside well without any complications that were apparent. [employer] Gatherer, Darling Elise, will continue with repair of the labial laceration which occurred from delivery of the baby. [id number]/[facility] #: [id number] MTDD
[2017-10-24] MEDS: Docusate CAP* 100 MG PO SCH ×3 (09:46→22:24)
[2017-10-24] MEDS: Ibuprofen TAB* 600 MG PO PRN ×3 (09:46→22:24)
[2017-10-24] MEDS: Ferrous Gluconate TAB* 324 MG TAB PO SCH ×2 (09:46→22:24)
[2017-10-24] MEDS: Witch Hazel PAD* JAR TOPICAL PRN (10:57)
[2017-10-24] MEDS: Acetaminophen TAB* 325 MG PO PRN (10:58)
[2017-10-25] MEDS: Ibuprofen TAB* 600 MG PO PRN (07:53)
[2017-10-25] MEDS: Ferrous Gluconate TAB* 324 MG TAB PO SCH (07:53)
[2017-10-25] MEDS: Docusate CAP* 100 MG PO SCH (07:53)
[2017-10-25] MEDS: Dibucaine 1% 28.35 GM TUBE PR PRN (07:58)
[2017-10-25 08:06] VITALS: BP 102/63
== END 2017-10-25 11:50 | disposition home or self-care (01) | DRG 767 ==
LOC: MCHOBOUT 21:43 → MCHOB 10-23 00:22
PROVIDERS: ADMIT Midwife; ATTEND Midwife
PROC: 10E0XZZ Delivery of Products of Conception, External Approach (ICD-10-PCS; principal; 2017-10-23)
PROC: 10D17Z9 Manual Extraction of Products of Conception, Retained, Via Natural or Artificial Opening (ICD-10-PCS; 2017-10-23)
PROC: 0KQM0ZZ Repair Perineum Muscle, Open Approach (ICD-10-PCS; 2017-10-23)
PROC: 10907ZC Drainage of Amniotic Fluid, Therapeutic from Products of Conception, Via Natural or Artificial Opening (ICD-10-PCS; 2017-10-23)
DX: O48.0 Post-term pregnancy (principal); O70.1 Second degree perineal laceration during delivery; O73.1 Retained portions of placenta and membranes, without hemorrhage; O69.81X0 Labor and delivery complicated by cord around neck, without compression, not applicable or unspecified; O77.0 Labor and delivery complicated by meconium in amniotic fluid; Z3A.40 40 weeks gestation of pregnancy; Z37.0 Single live birth
CPT/HCPCS: 36415; 85025; 86850; 86900; 86901; 88307; A9270-GY; J0694; J2300; J2550

== ENCOUNTER 2018-05-09 16:28 | Emergency (ER) | payer OTHER ==
[2018-05-09] MEDS ORDERED: oxyCODONE/Acetamin 5/325 MG* TAB PO ONE (20:29)
--- NOTE | 2018-05-09 21:04 | ED ---
Back Pain - HPI Summary HPI Summary: This patient is a 37 year old F presenting to [facility] with a chief complaint of burning, radiating shoulder blade pain since earlier today. She was found on the floor of the walk in cooler. The patient rates the pain 8/10 in severity. Patient reports difficulty moving her neck, burning pain in her right armpit and arm, CP, neck pain, tingling in her arms, and weakness in her right hand. Pt reports that she herniated her T6 when she was 21. She had a baby 6 months ago. Today, she was moving a keg and it felt like someone snapped a rubber band in my spine. TONYA works at [employer], has a child. - History of Current Complaint Chief Complaint: EDGeneral Stated Complaint: BACK PAIN Time Seen by Provider: 05/09/18 20:48 Hx Obtained From: Patient Hx Last Menstrual Period: 08/10/16 Onset/Duration: Sudden Onset, Lasting Days - 1 Onset/Duration: Started Hours Ago Timing: Constant Back Pain Location: Is Discrete @ - upper back, Radiates To - shoulders and arms Severity Initially: Severe Severity Currently: Severe Pain Intensity: 7 Pain Scale Used: 0-10 Numeric Character: Burning Aggravating Symptom(s): Movement, Lifting Associated Signs And Symptoms: Positive: Weakness - right hand, Tingling Related History: Similar Episode Dx As - 21yo, Previous Back Injury - Allergies/Home Medications Allergies/Adverse Reactions: Allergies Allergy/AdvReac Type Severity Reaction Status Date / Time No Known Allergies Allergy Verified 05/09/18 17:46 PMH/Surg Hx/FS Hx/Imm Hx Endocrine/Hematology History: Denies: Hx Anticoagulant Therapy, Hx Diabetes, Hx Thyroid Disease Cardiovascular History: Denies: Hx Congestive Heart Failure, Hx Deep Vein Thrombosis, Hx Hypertension , Hx Myocardial Infarction, Hx Pacemaker/ICD Respiratory History: Denies: Hx Asthma, Hx Chronic Obstructive Pulmonary Disease (COPD), Hx Lung Cancer, Hx Pneumonia, Hx Pulmonary Embolism GI History: Denies: Hx Gall Bladder Disease, Hx Gastrointestinal Bleed, Hx Ulcer, Hx Urosepsis History: Denies: Hx Kidney Stones, Hx Renal Disease Sensory History: Denies: Hx Legally Blind, Hx Deafness Opthamlomology History: Denies: Hx Legally Blind Neurological History: Denies: Hx Dementia, Hx Migraine, Hx Seizures, Hx Transient Ischemic Attacks (TIA) Psychiatric History: Reports: Hx Anxiety Denies: Hx Depression, Hx Schizophrenia, Hx Bipolar Disorder - Surgical History Surgery Procedure, Year, and Place: leep procedure Infectious Disease History: No Infectious Disease History: Denies: Hx Hepatitis, Hx Human Immunodeficiency Virus (HIV), Traveled Outside the [place] in Last 30 Days - Family History Known Family History: Positive: Hypertension Negative: Cardiac Disease - Social History Alcohol Use: None Hx Substance Use: No Substance Use Type: Reports: None Hx Tobacco Use: Yes Smoking Status (MU): Former Smoker Have You Smoked in the Last Year: No Review of Systems Positive: Chest Pain Musculoskeletal: Other - radiating shoulder blade pain, arm and shoulder pain Positive: Decreased ROM - neck, Other - neck pain Positive: Weakness - right hand, Numbness All Other Systems Reviewed And Are Negative: Yes Physical Exam - Summary Physical Exam Summary: Appearance: Well-appearing, Well-nourished, lying in bed comfortably Skin: Warm, dry, no obvious rash Eyes: sclera anicteric, no conjunctival pallor ENT: mucous membranes moist, pharynx appears normal Neck: Supple, nontender Respiratory: Clear to auscultation, no signs of respiratory distress Cardiovascular: Normal S1, S2. No murmurs. Normal distal pulses in tibial and radial bilaterally. Abdomen: Soft, nontender, normal active bowel sounds present Musculoskeletal: Normal, Strength/ROM Intact Neurological: A&Ox3, awake and alert, mentation is normal, speech is fluent and appropriate Psychiatric: affect is normal, does not appear anxious or depressed Triage Information Reviewed: Yes Vital Signs On Initial Exam: Initial Vitals Temp Pulse Resp BP Pulse Ox 98.4 F 88 18 112/60 99 05/09/18 17:10 05/09/18 17:10 05/09/18 17:10 05/09/18 17:10 05/09/18 17:10 Vital Signs Reviewed: Yes Diagnostics - Vital Signs Vital Signs Temp Pulse Resp BP Pulse Ox 05/09/18 19:40 98.5 F 72 16 106/76 98 05/09/18 17:10 98.4 F 88 18 112/60 99 - Laboratory Lab Statement: Any lab studies that have been ordered have been reviewed, and results considered in the medical decision making process. Back Pain Course/Dx - Course Course Of Treatment: This patient is a 37 year old F presenting to [facility] with a chief complaint of burning, radiating shoulder blade pain since earlier today. She was found on the floor of the walk in cooler. The patient rates the pain 8/ 10 in severity. Patient reports difficulty moving her neck, burning pain in her right armpit and arm, CP, neck pain, tingling in her arms, and weakness in her right hand. In the ED course the patient was given oxycodone. Patient will be discharged with follow up from Dr. Hubbard. The patient is agreeable with this plan. - Diagnoses Provider Diagnoses: Upper back strain Discharge - Sign-Out/Discharge Documenting (check all that apply): Patient Departure - discharge - Discharge Plan Condition: Good Disposition: HOME Patient Education Materials: Thoracic Back Strain (ED) Referrals: Pili Hubbard NP [Primary Care Provider] - Additional Instructions: I do not see any sign of a neurologic deficit on your exam. I suspect you suffered a strain of the muscles and ligaments of the upper back, although it is possible you re-herniated a thoracic disc. In the short run ice and OTC analgesics can be helpful, but if you do not start to improve over the next week or two getting into physical therapy can be helpful. - Billing Disposition and Condition Condition: GOOD Disposition: Home - Attestation Statements Document Initiated by Dominicibe: Yes Documenting Scribe: Bruce Thorne Provider For Whom [facility] is Documenting (Include Credential): Ed Snadra MD Scribe Attestation: Bruce Delatorre, scribed for Ed Sandra MD on 05/10/18 at 0349. Scribe Documentation Reviewed: Yes Provider Attestation: The documentation as recorded by the Bruce stephens accurately reflects the service I personally performed and the decisions made by me, Ed Sandra MD Status of Scribe Document: Viewed
[2018-05-09 21:10] VITALS: BP 110/67
== END 2018-05-09 21:09 | disposition home or self-care (01) ==
LOC: ED 16:28
DX: S29.012A Strain of muscle and tendon of back wall of thorax, initial encounter (principal); M54.9 Dorsalgia, unspecified; Z87.891 Personal history of nicotine dependence; R07.9 Chest pain, unspecified; X58.XXXA Exposure to other specified factors, initial encounter; Y92.9 Unspecified place or not applicable; R53.1 Weakness
CPT/HCPCS: 99281; A9270-GY